=== PATIENT | male | born 1980 | race Two or more races ===

== ENCOUNTER 2019-01-19 18:14 | Emergency (ER) | payer MEDICAID ==
[~2019-01-19] VITALS: Ht 170.2 cm; Wt 68.0 kg
[~2019-01-19 18:14] MED LIST: NKM
--- NOTE | 2019-01-19 18:14 | NUR ---
ED Nurse Note: [employer] AT THE BEDSIDE. NO HOLD WAS PLACED BY [employer] AT THIS TIME. [employer] WILL DISCUSS WITH ERMD REGARDING PT'S CONDITION.
--- NOTE | 2019-01-19 18:35 | NUR ---
ED Nurse Note: NOTIFIED NURSING ENGRAVER LETTER THAT PT VOICING SI AND HAS PLAN BY CUTTING HIMSELF AND NEED A SITTER.
--- NOTE | 2019-01-19 18:45 | NUR ---
ED Nurse Note:pt. was BIBA by [facility] and [facility] with suisidal idiations by cutting wrists, pt. is A/Ox4 ambulatory with steady gait and [employer] officers are interviewing pt.
[2019-01-19 19:40] VITALS: BP 158/100
--- NOTE | 2019-01-19 19:51 | NUR ---
ER Nurse Note: Pt stated he feels suicidal but unable to explain plan (if he has a plan). Pt starts talking then stares and looses concentration. Pupils dilated, not reactive to light. Pt a&ox2 to name and person. VSS, no signs of distress. Pt has abrasions on right forearm and old scars on left arm. Pt denies pain. IV established, blood and urine sent; awaiting results. Will continue to [facility].
[2019-01-19 20:10] LABS: BASOPHILS % (AUTO) 0.7 % (0.0-2.0); HEMATOCRIT 49.5 % (42.0-52.0); HEMOGLOBIN 17.3 G/DL (14.2-18.0); LYMPHOCYTES % (AUTO) 17.7 % (20.0-45.0); MEAN CORPUSCULAR VOLUME 93 FL (80-99); MONOCYTES % (AUTO) 3.9 % (1.0-10.0); NEUTROPHILS % (AUTO) 77.7 % (45.0-75.0); PLATELET COUNT 314 K/UL (150-450); RED BLOOD COUNT 5.31 M/UL (4.70-6.10); RED CELL DISTRIBUTION WIDTH 10.8 % (11.6-14.8); WHITE BLOOD COUNT 12.2 K/UL (4.8-10.8)
[2019-01-19 20:42] LABS: ANION GAP 13 mmol/L (5-15); BLOOD UREA NITROGEN 9 mg/dL (7-18); CALCIUM 9.8 MG/DL (8.5-10.1); CARBON DIOXIDE 26 MMOL/L (21-32); CHLORIDE 98 MMOL/L (98-107); CREATININE 1.3 MG/DL (0.55-1.30); POTASSIUM 4.3 MMOL/L (3.5-5.1); SODIUM 137 MMOL/L (136-145)
[2019-01-19 20:47] LABS: ALANINE AMINOTRANSFERASE 35 U/L (12-78); ALBUMIN 4.7 G/DL (3.4-5.0); ALBUMIN/GLOBULIN RATIO 1.2 (1.0-2.7); ALKALINE PHOSPHATASE 91 U/L (46-116); ASPARTATE AMINO TRANSFERASE 30 U/L (15-37); BILIRUBIN,TOTAL 0.6 MG/DL (0.2-1.0)
--- NOTE | 2019-01-19 21:51 | Emergency Room Report ---
History of Present Illness General Chief Complaint: Behavioral Complaint Source: Patient, Medical Record, EMS (Johan Troncoso MD) Present Illness HPI 38-year-old male presents ED for evaluation. Brought in by EMS. Patient states that he is hearing voices telling him to cut himself. States that he used to take some psychiatric medications but does not room the name. Admits to methamphetamine use. Denies alcohol use. Denies chest pain or shortness of breath. No other aggravating relieving factors. Denies any other associated symptoms (Johan Troncoso MD) Allergies: Coded Allergies: No Known Allergies (Unverified , 01/19/19) Patient History Past Medical History: none Past Surgical History: none Pertinent Family History: none Social History: Reports: drug use; Denies: smoking, alcohol use Immunizations: UTD Reviewed Nursing Documentation: PMH: Agreed; PSxH: Agreed (Johan Troncoso MD) Review of Systems All Other Systems: negative except mentioned in HPI (Johan Troncoso MD) Physical Exam Vital Signs Date Time Temp Pulse Resp B/P (MAP) Pulse Ox O2 Delivery O2 Flow Rate FiO2 01/19/19 18:09 98.6 87 18 182/105 96 Room Air Sp02 EP Interpretation: reviewed, normal General Appearance: no apparent distress, alert, GCS 15, non-toxic Head: normocephalic, atraumatic Eyes: bilateral eye normal inspection, bilateral eye PERRL ENT: hearing grossly normal, normal pharynx, no angioedema, normal voice Neck: full range of motion, supple/symm/no masses Respiratory: chest non-tender, lungs clear, normal breath sounds, speaking full sentences Cardiovascular #1: regular rate, rhythm, no edema Cardiovascular #2: 2+ carotid (R), 2+ carotid (L), 2+ radial (R), 2+ radial (L) , 2+ dorsalis pedis (R), 2+ dorsalis pedis (L) Gastrointestinal: normal bowel sounds, non tender, soft, non-distended, no guarding, no rebound Rectal: deferred Genitourinary: normal inspection, no CVA tenderness Musculoskeletal: back normal, gait/station normal, normal range of motion, non- tender Neurologic: alert, oriented x3, responsive, motor strength/tone normal, sensory intact, speech normal Psychiatric: judgement/insight normal, memory normal, no delusions, anxious Reflexes: 3+ bicep (R), 3+ bicep (L), 3+ tricep (R), 3+ tricep (L), 3+ knee (R) , 3+ knee (L) Skin: normal color, no rash, warm/dry, well hydrated Lymphatic: no adenopathy (Johan Troncoso MD) Medical Decision Making Diagnostic Impression: Primary Impression: Behavioral change Additional Impression: Substance abuse Labs Test 01/19/19 19:35 White Blood Count 12.2 K/UL (4.8-10.8) Red Blood Count 5.31 M/UL (4.70-6.10) Hemoglobin 17.3 G/DL (14.2-18.0) Hematocrit 49.5 % (42.0-52.0) Mean Corpuscular Volume 93 FL (80-99) Mean Corpuscular Hemoglobin 32.6 PG (27.0-31.0) Mean Corpuscular Hemoglobin Concent 35.0 G/DL (32.0-36.0) Red Cell Distribution Width 10.8 % (11.6-14.8) Platelet Count 314 K/UL (150-450) Mean Platelet Volume 5.8 FL (6.5-10.1) Neutrophils (%) (Auto) 77.7 % (45.0-75.0) Lymphocytes (%) (Auto) 17.7 % (20.0-45.0) Monocytes (%) (Auto) 3.9 % (1.0-10.0) Eosinophils (%) (Auto) 0.0 % (0.0-3.0) Basophils (%) (Auto) 0.7 % (0.0-2.0) Sodium Level 137 MMOL/L (136-145) Potassium Level 4.3 MMOL/L (3.5-5.1) Chloride Level 98 MMOL/L (98-107) Carbon Dioxide Level 26 MMOL/L (21-32) Anion Gap 13 mmol/L (5-15) Blood Urea Nitrogen 9 mg/dL (7-18) Creatinine 1.3 MG/DL (0.55-1.30) Estimat Glomerular Filtration Rate > 60 mL/min (>60) Glucose Level 102 MG/DL (74-106) Calcium Level 9.8 MG/DL (8.5-10.1) Total Bilirubin 0.6 MG/DL (0.2-1.0) Aspartate Amino Transf (AST/SGOT) 30 U/L (15-37) Alanine Aminotransferase (ALT/SGPT) 35 U/L (12-78) Alkaline Phosphatase 91 U/L (46-116) Total Protein 8.6 G/DL (6.4-8.2) Albumin 4.7 G/DL (3.4-5.0) Globulin 3.9 g/dL Albumin/Globulin Ratio 1.2 (1.0-2.7) Salicylates Level 1.5 ug/mL (2.8-20) Urine Opiates Screen Negative (NEGATIVE) Acetaminophen Level < 2 MCG/ML (10-30) Urine Barbiturates Screen Negative (NEGATIVE) Phencyclidine (PCP) Screen Negative (NEGATIVE) Urine Amphetamines Screen Positive (NEGATIVE) Urine Benzodiazepines Screen Negative (NEGATIVE) Urine Cocaine Screen Negative (NEGATIVE) Urine Marijuana (THC) Screen Negative (NEGATIVE) Serum Alcohol < 3 mg/dL (Johan Troncoso MD) ER Course During my shift security and nursing staff reported the patient had cut himself. Going to the room patient had appearance of skin avulsion midline forearm on the palmar aspect. No obvious active bleeding. Pulses intact. And neurovascularly appropriate Patient had dressing applied and Kerlix dressing on top At this time patient appears to be showing signs consistent with danger to self Patient was not initially placed on a 5150 However at this time requires medical hold with sitter Patient did have initial blood work obtained prior to my shift Patient does appear medically clear otherwise And contact is being made to psychiatric facilities Labs Test 01/19/19 19:35 White Blood Count 12.2 K/UL (4.8-10.8) Red Blood Count 5.31 M/UL (4.70-6.10) Hemoglobin 17.3 G/DL (14.2-18.0) Hematocrit 49.5 % (42.0-52.0) Mean Corpuscular Volume 93 FL (80-99) Mean Corpuscular Hemoglobin 32.6 PG (27.0-31.0) Mean Corpuscular Hemoglobin Concent 35.0 G/DL (32.0-36.0) Red Cell Distribution Width 10.8 % (11.6-14.8) Platelet Count 314 K/UL (150-450) Mean Platelet Volume 5.8 FL (6.5-10.1) Neutrophils (%) (Auto) 77.7 % (45.0-75.0) Lymphocytes (%) (Auto) 17.7 % (20.0-45.0) Monocytes (%) (Auto) 3.9 % (1.0-10.0) Eosinophils (%) (Auto) 0.0 % (0.0-3.0) Basophils (%) (Auto) 0.7 % (0.0-2.0) Sodium Level 137 MMOL/L (136-145) Potassium Level 4.3 MMOL/L (3.5-5.1) Chloride Level 98 MMOL/L (98-107) Carbon Dioxide Level 26 MMOL/L (21-32) Anion Gap 13 mmol/L (5-15) Blood Urea Nitrogen 9 mg/dL (7-18) Creatinine 1.3 MG/DL (0.55-1.30) Estimat Glomerular Filtration Rate > 60 mL/min (>60) Glucose Level 102 MG/DL (74-106) Calcium Level 9.8 MG/DL (8.5-10.1) Total Bilirubin 0.6 MG/DL (0.2-1.0) Aspartate Amino Transf (AST/SGOT) 30 U/L (15-37) Alanine Aminotransferase (ALT/SGPT) 35 U/L (12-78) Alkaline Phosphatase 91 U/L (46-116) Total Protein 8.6 G/DL (6.4-8.2) Albumin 4.7 G/DL (3.4-5.0) Globulin 3.9 g/dL Albumin/Globulin Ratio 1.2 (1.0-2.7) Salicylates Level 1.5 ug/mL (2.8-20) Urine Opiates Screen Negative (NEGATIVE) Acetaminophen Level < 2 MCG/ML (10-30) Urine Barbiturates Screen Negative (NEGATIVE) Phencyclidine (PCP) Screen Negative (NEGATIVE) Urine Amphetamines Screen Positive (NEGATIVE) Urine Benzodiazepines Screen Negative (NEGATIVE) Urine Cocaine Screen Negative (NEGATIVE) Urine Marijuana (THC) Screen Negative (NEGATIVE) Serum Alcohol < 3 mg/dL (Jonah Sheikh DO) ER Course Patient attention to cut himself, he is medically cleared, acccepted by Dr. Merrill at [facility] for psychiatric transfer. +Methamphetamine abuse. (CARLOS YADAV M.D) Last Vital Signs Date Time Temp Pulse Resp B/P (MAP) Pulse Ox O2 Delivery O2 Flow Rate FiO2 01/19/19 18:54 87 18 Room Air 01/19/19 18:09 98.6 182/105 96 (Johan Troncoso MD) Status: improved (Jonah Sheikh DO) Disposition: XFER TO PSYCH HOSP/UNIT Condition: Improved Johan Troncoso MD Jan 19, 2019 21:51 Jonah Sheikh DO Jan 20, 2019 01:49 CARLOS YADAV M.D Jan 20, 2019 12:08
[2019-01-19 23:40] VITALS: BP 142/98
[2019-01-20] MEDS ORDERED: LORazepam Inj 2mg/ml 1ml IV ONE (01:45)
[2019-01-20] MEDS ORDERED: Haloperidol 5mg/ml Inj IM ONE (02:00)
[2019-01-20 02:24] VITALS: BP 130/84
[2019-01-20 02:51] LABS: APPEARANCE,URINE CLEAR; BILIRUBIN, URINE NEGATIVE (NEGATIVE); COLOR,URINE PALE YELLOW; GLUCOSE, URINE (UA) NEGATIVE (NEGATIVE); KETONES,URINE NEGATIVE (NEGATIVE); LEUKOCYTE ESTERASE ,URINE 1+ (NEGATIVE); NITRITE,URINE NEGATIVE (NEGATIVE); PH,URINE 7 (4.5-8.0); PROTEIN,URINE NEGATIVE (NEGATIVE); UROBILINOGEN,URINE NORMAL MG/DL (0.0-1.0)
--- NOTE | 2019-01-20 02:51 | NUR ---
ER Nurse Note: Pt has a lacteration to the left forearm; bleeding was controlled and dressing applied, clean dry and intact. Wound care provided. Pt had a panic attack shortly after; primary nurse and other nurse attempted to calm pt; pt was hyperventilating, clammy, and pupils were dilated. Medication ordered and given. Pt is calm, resting in bed, no signs of distress. Belongings in locker 3. Will continue to [facility]. Addendum: 01/20/19 at 0354 by CKIMAllie ER Nurse Note: Security found pt after pt cut himself with a razor. Razor was confiscated by security. Bleeding stopped, gauze and kerlix applied; dressing clean, dry, intact. Charge nurse and ERMD notifed and aware.
[2019-01-20 06:33] VITALS: BP 134/82
--- NOTE | 2019-01-20 07:26 | NUR ---
ER Nurse Note: Report given to PARISH Pascal for continutiy of care.
--- NOTE | 2019-01-20 07:58 | NUR ---
ED Nurse Note: pt awake and oriented x 3. pt states "feeling depressed and want to cut myself" pt with dressing intact to left wrist. breakfast tray given to pt. plastic utensils given. pt water bottle refilled at his request. fire extinguisher charger aware of need for sitter for pt observation.
[2019-01-20 08:10] VITALS: BP 146/87
[2019-01-20] MEDS ORDERED: LORazepam 1mg tab ORAL ONE (08:15)
--- NOTE | 2019-01-20 08:25 | NUR ---
ED Nurse Note: pt tolerates breakfast well. clears pt to take own home HIV meds of genoya 1 tab. found in pt belongngs in psych locker #3. pt also medicated for increased anxiety with meds as noted. pt requesting his cell phone also to make a call to his manager rn case. pt given access to his phone.
--- NOTE | 2019-01-20 08:38 | NUR ---
ED Nurse Note: spoke with pt [employer] plastic manager Jennifer at [facility]. she states approx 1730 last night pt notified the crisis hotline for [facility] stating that he was depressed and suicidal with plans to hang self and cutting self. pt also stated to crisis line that he had meth use at time. pt confirms this and states rn can give info to ed case manager Jennifer. pt made aware PMRT to eval pt for 5150 placemnt today. pt remains cooperative with rn despite his increased anxiety. pt aware of meds to assist with feelings. pt remains under close observation by rn and ed staff. chargeback analyst and ed md made aware.
--- NOTE | 2019-01-20 09:10 | NUR ---
ED Nurse Note: PRMT here to eval pt and states pt will be 5150 hold. pt remains safe and cooperative
--- NOTE | 2019-01-20 10:14 | NUR ---
ED Nurse Note: pt on 5150 hold and awaiting placement facility. pt resting in room with even regular resp.
[2019-01-20] MEDS ORDERED: GENVOYA TABLET1 EACH PO (10:25)
--- NOTE | 2019-01-20 12:03 | NUR ---
ED Nurse Note: placement for pt available awaits ambulance transport pt remains cooperative with plan. pt given clean gown and toiletries at his request
--- NOTE | 2019-01-20 13:08 | NUR ---
ED Nurse Note: food tray given to pt.
[2019-01-20 13:46] VITALS: BP 146/87
--- NOTE | 2019-01-20 13:48 | NUR ---
ED Nurse Note:report given to [facility] intake, aware pt en route. pt calm upon dc. report given to s crew. all belongings verified with crew and sent to [facility] with pt. a/ox3 states has plan to arrange housing after dc
== END 2019-01-20 13:55 ==
LOC: EDBD 18:14 → EMR 18:29
DX: F91.9 Conduct disorder, unspecified (principal); F15.10 Other stimulant abuse, uncomplicated; S51.809A Unspecified open wound of unspecified forearm, initial encounter; X78.9XXA Intentional self-harm by unspecified sharp object, initial encounter; Y92.239 Unspecified place in hospital as the place of occurrence of the external cause
CPT/HCPCS: 36415; 80053; 80307; 80329; 81003; 85025; 96372; 96374; 99284; J1630

== ENCOUNTER 2020-02-27 07:58 | Emergency (ER) | payer SELFPAY ==
[~2020-02-27] VITALS: Ht 167.6 cm; Wt 68.0 kg
[~2020-02-27 07:58] MED LIST changes: +GENVOYA TABLET1 EACH PO
--- NOTE | 2020-02-27 07:58 | NUR ---
ED Nurse Note: Pt arrived with RA 61 due to possible OD on 8 seroquel pills, from street. pt reports being dizzy. pt is calm and cooperative. pt placed in gown and put on rn cardiac cath
--- NOTE | 2020-02-27 07:59 | NUR ---
ED Nurse Note: pt states "I wasnt trying to harm myself i was just trying to get high"
--- NOTE | 2020-02-27 08:00 | NUR ---
ED Nurse Note: Upon arrival, left upper shoulder noted with 1 unkown healed lesion, left forearm healed/scarred self inflicted lacerations, and 1 right ankle unkown scabbed/healed lesion.
[2020-02-27 08:01] VITALS: BP 138/92
--- NOTE | 2020-02-27 08:05 | NUR ---
ED Nurse Note: Iv line established, patent and intact.
--- NOTE | 2020-02-27 08:10 | NUR ---
ED Nurse Note: Blood and urine specimen sent to lab
[2020-02-27] MEDS ORDERED: Activated Charcoal 50gm/240ml Btl ORAL ONE (08:15)
[2020-02-27] MEDS ORDERED: Metoclopramide 10mg/2ml Inj IVP ONE (08:15)
--- NOTE | 2020-02-27 08:54 | Emergency Room Report ---
History of Present Illness General Chief Complaint: Overdose Source: Patient Present Illness HPI 39-year-old male presents status post overdose. brought in by EMS from [facility]. States that this morning he took 6 tablets of seroquel 300mg. denies SI or HI. states he was trying to get 'high'. Denies any other alcohol or drug use. Denies hearing voices. States he has a headache. Dull, 6 out of 10, nonradiating. Denies nausea or vomiting. Denies abdominal pain. Denies chest pain. No other aggravating relieving factors. Denies any other associated symptoms Allergies: Coded Allergies: No Known Allergies (Unverified , 01/19/19) COVID-19 Screening Contact w/high risk pt: No Recent Travel to affected area: No Experienced COVID-19 symptoms?: No Patient History Past Medical History: psych hx Past Surgical History: none Pertinent Family History: none Social History: Denies: smoking, alcohol use, drug use Immunizations: UTD Reviewed Nursing Documentation: PMH: Agreed; PSxH: Agreed Nursing Documentation-PMH Past Medical History: No History, Except For Hx Cardiac Problems: No - HIV Review of Systems All Other Systems: negative except mentioned in HPI Physical Exam Vital Signs Date Time Temp Pulse Resp B/P (MAP) Pulse Ox O2 Delivery O2 Flow Rate FiO2 02/27/20 07:55 97.2 96 20 138/92 (107) 97 Room Air Sp02 EP Interpretation: reviewed, normal General Appearance: no apparent distress, alert, GCS 15, non-toxic, lethargic Head: normocephalic, atraumatic Eyes: bilateral eye normal inspection, bilateral eye PERRL ENT: hearing grossly normal, normal pharynx, no angioedema, normal voice Neck: full range of motion, supple/symm/no masses Respiratory: chest non-tender, lungs clear, normal breath sounds, speaking full sentences Cardiovascular #1: regular rate, rhythm, no edema Cardiovascular #2: 2+ carotid (R), 2+ carotid (L), 2+ radial (R), 2+ radial (L) , 2+ dorsalis pedis (R), 2+ dorsalis pedis (L) Gastrointestinal: normal bowel sounds, non tender, soft, non-distended, no guarding, no rebound Rectal: deferred Genitourinary: normal inspection, no CVA tenderness Musculoskeletal: back normal, normal range of motion, gait/station normal, non- tender Neurologic: alert, motor strength/tone normal, oriented x3, sensory intact, responsive, speech normal Psychiatric: judgement/insight normal, memory normal, no suicidal/homicidal ideation, no delusions, anxious Reflexes: 3+ bicep (R), 3+ bicep (L), 3+ tricep (R), 3+ tricep (L), 3+ knee (R) , 3+ knee (L) Lymphatic: no adenopathy Medical Decision Making Diagnostic Impression: Primary Impression: Drug overdose Qualified Codes: T50.901A - Poisoning by unspecified drugs, medicaments and biological substances, accidental (unintentional), initial encounter ER Course Hospital Course 39-year-old male presents after taking 6 tablets of Seroquel 300 mg. Differential diagnoses include: Psychosis, EtOH, drug abuse Clinical course patient placed on stretcher. On monitor car operator. After initial history and physical ordered labs, IV fluids, meds, EKG, charcoal Labs reviewed - no leukocytosis, hb/hct stable, electrolytes ok, Utox + amphetamines EKGnormal sinus rhythm no acute ischemic changes interpreted by me. No QTC prolongation Discussed with poison control. Recommend 6-hour observation. IV fluids, cardiac monitoring. EKG to evaluate for QTC prolongation. Patient is a longer in police custody. Patient is now awake alert oriented x3, ambulating. Denies SI or HI. safe for discharge with close outpatient followup. i'll provide referrals i. I feel this is a highly complex case requiring extensive working including EKG/Rhythm strip, Xray/CT/US, Blood/urine lab work, repeat exams while in ED, and administration of strong opiates/narcotics for pain control, admission to hospital or close patient follow up. Diagnosis -drug overdose Stable and discharged to home. Followup with PMD. Return to ED if symptoms recur or worsen Last Vital Signs Date Time Temp Pulse Resp B/P (MAP) Pulse Ox O2 Delivery O2 Flow Rate FiO2 02/27/20 08:01 97.2 96 20 138/92 97 Room Air Status: improved Disposition: HOME, SELF-CARE Condition: Stable Referrals: NOT CHOSEN IPA/,REFERRING (PCP) Johan Troncoso MD February 27, 2020 08:54
[2020-02-27 09:15] LABS: BASOPHILS % (AUTO) 0.9 % (0.0-2.0); EOSINOPHILS % (AUTO) 0.3 % (0.0-3.0); HEMATOCRIT 40.8 % (42.0-52.0); HEMOGLOBIN 14.7 G/DL (14.2-18.0); LYMPHOCYTES % (AUTO) 36.2 % (20.0-45.0); MEAN CORPUSCULAR VOLUME 90 FL (80-99); MONOCYTES % (AUTO) 6.7 % (1.0-10.0); NEUTROPHILS % (AUTO) 55.9 % (45.0-75.0); PLATELET COUNT 242 K/UL (150-450); RED BLOOD COUNT 4.55 M/UL (4.70-6.10); RED CELL DISTRIBUTION WIDTH 10.9 % (11.6-14.8); WHITE BLOOD COUNT 5.7 K/UL (4.8-10.8)
[2020-02-27 09:20] LABS: ANION GAP 9 mmol/L (5-15); BLOOD UREA NITROGEN 11 mg/dL (7-18); CALCIUM 9.2 MG/DL (8.5-10.1); CARBON DIOXIDE 26 MMOL/L (21-32); CHLORIDE 103 MMOL/L (98-107); CREATININE 0.9 MG/DL (0.55-1.30); POTASSIUM 3.5 MMOL/L (3.5-5.1); SODIUM 138 MMOL/L (136-145)
[2020-02-27 09:28] LABS: ALANINE AMINOTRANSFERASE 39 U/L (12-78); ALBUMIN 3.8 G/DL (3.4-5.0); ALBUMIN/GLOBULIN RATIO 1.1 (1.0-2.7); ALKALINE PHOSPHATASE 116 U/L (46-116); ASPARTATE AMINO TRANSFERASE 24 U/L (15-37); BILIRUBIN,TOTAL 0.6 MG/DL (0.2-1.0)
--- NOTE | 2020-02-27 09:30 | NUR ---
ED Nurse Note: Pt finished breakfast tray, pt is resting in bed asleep. blanket provided.
[2020-02-27 09:57] VITALS: BP 142/84
[2020-02-27 10:25] LABS: APPEARANCE,URINE CLEAR; COLOR,URINE PALE YELLOW
[2020-02-27 10:26] LABS: BILIRUBIN, URINE NEGATIVE (NEGATIVE); GLUCOSE, URINE (UA) NEGATIVE (NEGATIVE); KETONES,URINE NEGATIVE (NEGATIVE); LEUKOCYTE ESTERASE ,URINE NEGATIVE (NEGATIVE); NITRITE,URINE NEGATIVE (NEGATIVE); PROTEIN,URINE NEGATIVE (NEGATIVE); UROBILINOGEN,URINE NORMAL MG/DL (0.0-1.0)
--- NOTE | 2020-02-27 11:50 | NUR ---
ED Nurse Note: Pt is awake and served lunch tray
[2020-02-27 12:12] VITALS: BP 130/81
[2020-02-27 14:01] VITALS: BP 124/83
--- NOTE | 2020-02-27 14:03 | NUR ---
ER DISCHARGE NOTE: Patient is cleared to be discharged per ERMD, pt is aox4, on room air, with stable vital signs. pt was given dc instructions, pt was able to verbalize understanding, pt id band and iv site removed without complications. pt is able to ambulate with steady gait. pt took all belongings. pt provided with meal.
== END 2020-02-27 14:03 | disposition home or self-care (01) ==
LOC: EDBD 07:58 → EMR 08:10
DX: T43.591A Poisoning by other antipsychotics and neuroleptics, accidental (unintentional), initial encounter (principal); Y92.9 Unspecified place or not applicable; B20 Human immunodeficiency virus [HIV] disease
CPT/HCPCS: 36415; 80053; 80307; 81003; 83735; 85025; 93005; 96361; 96374; 96375; 99284; G0480; J2765; J7030; S0028

== ENCOUNTER 2020-05-06 20:56 | Emergency (ER) | payer OTHER ==
[~2020-05-06] VITALS: Ht 167.6 cm; Wt 68.0 kg
[2020-05-06 21:00] VITALS: BP 135/85
--- NOTE | 2020-05-06 21:00 | NUR ---
ED Nurse Note: patient brought in by [employer] from the [facility] d/t behavioral complaint. Patient aao x 4 and ambulatory with steady gait. Patient no c/o pain. Patient is hyperalert, able to follow commands but needs to be redirected. Patient placed on 5150 hold for harm to self by [employer], charge nurse made aware of need for sitter. Patient changed into gown and placed in room. All items removed from room, all belongings removed from patient. No acute distress noted during assessment.
[2020-05-06] MEDS ORDERED: LORazepam Inj 2mg/ml 1ml IV ONE (21:15)
--- NOTE | 2020-05-06 21:20 | NUR ---
ED Nurse Note: pt backpack placed in locker 2
--- NOTE | 2020-05-06 21:40 | Emergency Room Report ---
History of Present Illness General Chief Complaint: Behavioral Complaint Source: Patient (Johan Troncoso MD) Present Illness HPI 39-year-old male presents for psychiatric evaluation. Brought in by EMS from [facility]. States he wants to hurt himself by cutting his wrists. History of bipolar. Admits to drug use. Denies chest pain or shortness of breath. Denies hearing voices. No other aggravating relieving factors. Denies any other associated symptoms (Johan Troncoso MD) Allergies: Coded Allergies: No Known Allergies (Unverified , 01/19/19) COVID-19 Screening Contact w/high risk pt: No Recent Travel to affected area: No Experienced COVID-19 symptoms?: No COVID-19 Testing performed [employer]ER: No (Johan Troncoso MD) Patient History Past Medical History: psych hx Past Surgical History: none Pertinent Family History: none Social History: Reports: drug use; Denies: smoking, alcohol use Immunizations: UTD Reviewed Nursing Documentation: PMH: Agreed; PSxH: Agreed (Johan Troncoso MD) Nursing Documentation-PMH Past Medical History: No History, Except For Hx Cardiac Problems: No - HIV (Johan Troncoso MD) Review of Systems All Other Systems: negative except mentioned in HPI (Johan Troncoso MD) Physical Exam Vital Signs Date Time Temp Pulse Resp B/P (MAP) Pulse Ox O2 Delivery O2 Flow Rate FiO2 720 20:59 98.2 92 19 133/84 (100) 99 Room Air Sp02 EP Interpretation: reviewed, normal General Appearance: no apparent distress, alert, GCS 15, non-toxic Head: normocephalic, atraumatic Eyes: bilateral eye normal inspection, bilateral eye PERRL ENT: hearing grossly normal, normal pharynx, no angioedema, normal voice Neck: full range of motion, supple/symm/no masses Respiratory: chest non-tender, lungs clear, normal breath sounds, speaking full sentences Cardiovascular #1: regular rate, rhythm, no edema Cardiovascular #2: 2+ carotid (R), 2+ carotid (L), 2+ radial (R), 2+ radial (L) , 2+ dorsalis pedis (R), 2+ dorsalis pedis (L) Gastrointestinal: normal bowel sounds, non tender, soft, non-distended, no guarding, no rebound Rectal: deferred Genitourinary: normal inspection, no CVA tenderness Musculoskeletal: back normal, normal range of motion, gait/station normal, non- tender Neurologic: alert, motor strength/tone normal, oriented x3, sensory intact, responsive, speech normal Psychiatric: no delusions, depressed affect, anxious Reflexes: 3+ bicep (R), 3+ bicep (L), 3+ tricep (R), 3+ tricep (L), 3+ knee (R) , 3+ knee (L) Skin: no rash Lymphatic: no adenopathy (Johan Troncoso MD) Medical Decision Making Diagnostic Impression: Primary Impression: Bipolar disease, manic Additional Impression: Methamphetamine abuse ER Course Patient was endorsed to me by Dr. henry doctor. Patient was noted to be markedly agitated and yelling in the emergency department. Attempts at redirection were unsuccessful. Patient was simply given medications due to agitation. Patient states he feels as if he is going to . Patient was medically cleared for psychiatric evaluation and placement. Labs Test 05/06/20 21:10 05/06/20 21:18 Urine Opiates Screen Negative (NEGATIVE) Urine Barbiturates Screen Negative (NEGATIVE) Phencyclidine (PCP) Screen Negative (NEGATIVE) Urine Amphetamines Screen Positive (NEGATIVE) Urine Benzodiazepines Screen Negative (NEGATIVE) Urine Cocaine Screen Negative (NEGATIVE) Urine Marijuana (THC) Screen Negative (NEGATIVE) White Blood Count 8.4 K/UL (4.8-10.8) Red Blood Count 4.88 M/UL (4.70-6.10) Hemoglobin 15.7 G/DL (14.2-18.0) Hematocrit 45.7 % (42.0-52.0) Mean Corpuscular Volume 94 FL (80-99) Mean Corpuscular Hemoglobin 32.2 PG (27.0-31.0) Mean Corpuscular Hemoglobin Concent 34.4 G/DL (32.0-36.0) Red Cell Distribution Width 11.5 % (11.6-14.8) Platelet Count 513 K/UL (150-450) Mean Platelet Volume 6.0 FL (6.5-10.1) Neutrophils (%) (Auto) 56.9 % (45.0-75.0) Lymphocytes (%) (Auto) 34.1 % (20.0-45.0) Monocytes (%) (Auto) 8.0 % (1.0-10.0) Eosinophils (%) (Auto) 0.1 % (0.0-3.0) Basophils (%) (Auto) 0.9 % (0.0-2.0) Sodium Level 136 MMOL/L (136-145) Potassium Level 3.5 MMOL/L (3.5-5.1) Chloride Level 98 MMOL/L (98-107) Carbon Dioxide Level 23 MMOL/L (21-32) Anion Gap 15 mmol/L (5-15) Blood Urea Nitrogen 12 mg/dL (7-18) Creatinine 1.4 MG/DL (0.55-1.30) Estimat Glomerular Filtration Rate 55.8 mL/min (>60) Glucose Level 134 MG/DL (74-106) Calcium Level 9.3 MG/DL (8.5-10.1) Total Bilirubin 0.7 MG/DL (0.2-1.0) Aspartate Amino Transf (AST/SGOT) 22 U/L (15-37) Alanine Aminotransferase (ALT/SGPT) 25 U/L (12-78) Alkaline Phosphatase 92 U/L (46-116) Total Protein 8.1 G/DL (6.4-8.2) Albumin 4.3 G/DL (3.4-5.0) Globulin 3.8 g/dL Albumin/Globulin Ratio 1.1 (1.0-2.7) Salicylates Level 0.6 ug/mL (2.8-20) Acetaminophen Level < 2 MCG/ML (10-30) Serum Alcohol < 3 mg/dL (Reginald Moore MD) Last Vital Signs Date Time Temp Pulse Resp B/P (MAP) Pulse Ox O2 Delivery O2 Flow Rate FiO2 05/06/20 20:59 98.2 92 19 133/84 (100) 99 Room Air (Johan Troncoso MD) Status: improved (Reginald Moore MD) Disposition: SHORT-TERM HOSP Condition: Stable Johan Troncoso MD May 06, 2020 21:40 Reginald Moore MD May 07, 2020 06:49
[2020-05-06 21:49] LABS: ANION GAP 15 mmol/L (5-15); BLOOD UREA NITROGEN 12 mg/dL (7-18); CALCIUM 9.3 MG/DL (8.5-10.1); CARBON DIOXIDE 23 MMOL/L (21-32); CHLORIDE 98 MMOL/L (98-107); CREATININE 1.4 MG/DL (0.55-1.30); POTASSIUM 3.5 MMOL/L (3.5-5.1); SODIUM 136 MMOL/L (136-145)
[2020-05-06 21:52] LABS: ALANINE AMINOTRANSFERASE 25 U/L (12-78); ALBUMIN 4.3 G/DL (3.4-5.0); ALBUMIN/GLOBULIN RATIO 1.1 (1.0-2.7); ALKALINE PHOSPHATASE 92 U/L (46-116); ASPARTATE AMINO TRANSFERASE 22 U/L (15-37); BILIRUBIN,TOTAL 0.7 MG/DL (0.2-1.0)
[2020-05-06 21:53] LABS: BASOPHILS % (AUTO) 0.9 % (0.0-2.0); EOSINOPHILS % (AUTO) 0.1 % (0.0-3.0); HEMATOCRIT 45.7 % (42.0-52.0); HEMOGLOBIN 15.7 G/DL (14.2-18.0); LYMPHOCYTES % (AUTO) 34.1 % (20.0-45.0); MEAN CORPUSCULAR VOLUME 94 FL (80-99); NEUTROPHILS % (AUTO) 56.9 % (45.0-75.0); PLATELET COUNT 513 K/UL (150-450); RED BLOOD COUNT 4.88 M/UL (4.70-6.10); RED CELL DISTRIBUTION WIDTH 11.5 % (11.6-14.8); WHITE BLOOD COUNT 8.4 K/UL (4.8-10.8)
--- NOTE | 2020-05-06 22:56 | NUR ---
ED Nurse Note: Patient resting in bed, no acute distress noted.
--- NOTE | 2020-05-06 22:57 | NUR ---
ED Nurse Note: patient provided with urinal.
--- NOTE | 2020-05-07 00:04 | NUR ---
ED Nurse Note: patient calmer, able to hold a conversation. no acute distress noted during reassessment.
--- NOTE | 2020-05-07 00:54 | NUR ---
ED Nurse Note: Patient requesting ativan or seroquel for sleep, BLASD made aware. Patient needs to redirected in regards to when he can get his belongings.
--- NOTE | 2020-05-07 03:59 | NUR ---
ED Nurse Note: Patient sleeping in bed, no acute distress noted.
--- NOTE | 2020-05-07 05:33 | NUR ---
ED Nurse Note: Patient became verbally aggressive demanding HIV medication, ERMD aware, security at bedside with cook chill technician.
--- NOTE | 2020-05-07 05:35 | NUR ---
ED Nurse Note: Patient shouting in hallways and being verbally aggressive with staff, patient states he was on drugs and is not suicidal and does not understand why [employer] put him on a suicide hold. patient shouting despite staff redirecting.
--- NOTE | 2020-05-07 05:59 | NUR ---
ED Nurse Note: Patient now calm, resting in bed. no acute distress noted.
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
--- NOTE | 2020-05-07 06:28 | NUR ---
ED Nurse Note: Patient raising voice stating he is not suicidal and does not understand why the police put him on a hold. Patient redirected several times to go back to his room, and repeats the same information. [employer] explained status of hold, patient not understanding the reason for hold despite several explanations.
--- NOTE | 2020-05-07 06:32 | NUR ---
ED Nurse Note: Patient not comprehending ERMD explanation of hold and is becoming verbally aggressive raising voice, security with patient.
[2020-05-07] MEDS ORDERED: DiphenhydrAMINE 50mg/ml Inj IM ONE (06:45)
[2020-05-07] MEDS ORDERED: DiphenhydrAMINE 50mg/ml Inj ONE (06:45)
[2020-05-07] MEDS ORDERED: Haloperidol 5mg/ml Inj IM ONE (06:45)
[2020-05-07] MEDS ORDERED: LORazepam Inj 2mg/ml 1ml IM ONE (06:45)
[2020-05-07] MEDS ORDERED: Haloperidol 5mg/ml Inj ONE (06:46)
--- NOTE | 2020-05-07 06:49 | NUR ---
ED Nurse Note: Patient became aggressive, security assisted patient to bed, ERMD aware with machine tool technology instructor and security at bedside.
--- NOTE | 2020-05-07 07:01 | NUR ---
HAND-OFF: Report given to PARISH Márquez.
[2020-05-07 07:02] VITALS: BP 142/82
--- NOTE | 2020-05-07 07:05 | NUR ---
ED Nurse Note: Patient awake, alert and oriented. Pt is calm and answers question appropriately. No SI/ HI at this time. VSS. Safety and comfort provided. Sitter at bedside.
[2020-05-07 07:52] VITALS: BP 132/85
--- NOTE | 2020-05-07 08:28 | NUR ---
ED Nurse Note: 2 point restraints removed. skin intact. no redness noted. pt. is sleeping. sitter at the bedside. vss
--- NOTE | 2020-05-07 12:05 | NUR ---
ED Nurse Note: Lunch tray provided.
--- NOTE | 2020-05-07 13:59 | NUR ---
ED Nurse Note: Dr. Anaya at bedside.
--- NOTE | 2020-05-07 14:08 | NUR ---
ED Nurse Note: Dr. Gonzalez lifted the 5150 hold. d/c sitter order
--- NOTE | 2020-05-07 14:09 | NUR ---
ED Nurse Note: Dr. Anaya spoke with the patient. Pt denies SI/ HI. Stated that he needs a place to stay. Admits using meth every week. Pt AAOx4, calm, cooperative and answer appropriately. Dr Anaya lifted the 5150 hold. Pt is okay to be dc.
[2020-05-07 15:50] VITALS: BP 130/77
--- NOTE | 2020-05-07 15:50 | NUR ---
ED Nurse Note: Pt cleared by ERMD for discharge. DC instructions was given and explained to pt and verbalized understanding of teachings. All medical deviecs such as ID band removed. Pt is AAO x4, ambulatory and left with all personal belongings. Meal provided.
--- NOTE | 2020-05-08 00:44 | Consultation ---
DATE OF CONSULTATION: 05/07/2020 CONSULTING PHYSICIAN: Nikki Gonzalez MD HISTORY OF PRESENT ILLNESS: This is a 39-year-old male with a history of methamphetamine abuse who has been admitted to the hospital on a 5150 for danger to self. The patient received medications for agitation. Upon evaluation, the patient denied having any suicidal ideation. He stated that he never told the [employer] that he was suicidal. The patient is homeless. He stated that he needs a place to live. He does not endorse any depressive, manic, or anxiety symptoms. The patient does not endorse any homicidal ideation. The patient stated that he uses meth once a week via smoking. PSYCHIATRIC HISTORY: He stated that he has two psychiatric hospitalizations and one using meth and was psychotic. PAST MEDICAL HISTORY: None. ALLERGIES: No known drug allergies. SUBSTANCE USE HISTORY: No known history of alcohol use. He uses methamphetamine only. Denied PCP, heroin, or other illicit drugs. MENTAL STATUS EXAMINATION: The patient is alert and oriented times self, place, and situation. He is irritable. Affect is constricted, congruent with mood. Thought process is linear and goal oriented. Thought content, no suicidal or homicidal ideation. Cognition is intact. Insight and judgment are fair. ASSESSMENT: [place] I Methamphetamine abuse. Psychiatric disorder. [place] II Deferred. [place] III None. [place] IV Homelessness. [place] V 50. PLAN: 1. The patient is reluctant to take any medication. Suggested Haldol IM. 2. Provide the patient with reality orientation and supportive therapy. 3. Continue to follow and adjust the medications. Nikki Gonzalez M.D. DR: TAYLOR JOB#: [id number] CC:
== END 2020-05-07 15:50 | disposition home or self-care (01) ==
LOC: EMR 21:39
DX: F31.9 Bipolar disorder, unspecified (principal); F15.10 Other stimulant abuse, uncomplicated; B20 Human immunodeficiency virus [HIV] disease; R45.851 Suicidal ideations
CPT/HCPCS: 36415; 80053; 80307; 85025; 96361; 96372; 96374; G0480; G0481; J1200; J1630; J7030; Z7502; 99285